=== PATIENT | male | born 1935 | race Caucasian/White ===

== ENCOUNTER 2017-01-16 09:59 | Observation (INO) | payer OTHER ==
[~2017-01-16] VITALS: Ht 175.3 cm; Wt 88.9 kg
[~2017-01-16 09:59] MED LIST: CELEBREX200 MG PO; FORTAMET500 M1 PO; LOVASTATIN10 MG PO; [UNRECOGNIZED DRUG - OTHER]
[2017-01-16 10:36] LABS: HEMATOCRIT 49.7 % (38.0-50.0); MCH 26.5 PG (29.0-34.0); MCV 82.8 FL (86-99); MEAN PLAT.VOLUME 11.3 uM^3 (9.0-12.4); PLATELET COUNT 303 K/uL (156-360); RBC DIS.WIDTH-SD 39.1 % (39-53); WHITE BLOOD COUNT 7.2 K/uL (4.1-10.2)
[2017-01-16 10:49] LABS: CHLORIDE 104 mEq/L (99-109); POTASSIUM 4.4 mEq/L (3.7-5.4); SODIUM 139 mEq/L (136-147)
[2017-01-16 10:51] LABS: GLUCOSE 117 mg/dL (70-99)
[2017-01-16 10:52] LABS: ANION GAP 11 MEQ/L (2-14)
[2017-01-16 10:55] LABS: GFR ESTIMATE (CALCULATED) > 59 mL/min/
[2017-01-16 10:56] LABS: UREA NITROGEN (BUN) 18 mg/dL (9-23)
[2017-01-16 10:57] LABS: TROP-I INTERPRETATION NEGATIVE; TROPONIN-I < 0.01 ng/mL (0.0-0.30)
[2017-01-16] MEDS ORDERED: MEVACOR40 MG PO (13:22)
[2017-01-16] MEDS ORDERED: ANTIVERT12.5 MG PO (13:23)
[2017-01-16] MEDS ORDERED: MAXZIDE 75/501 EACH PO (13:25)
[2017-01-16] MEDS ORDERED: LYRICA75 MG PO (13:27)
[2017-01-16 14:02] VITALS: BP 132/79
[2017-01-16 14:21] LABS: POINT-OF-CARE METER ID UU14162513
[2017-01-16 17:13] VITALS: BP 127/71
[2017-01-16 17:15] LABS: TROP-I INTERPRETATION NEGATIVE; TROPONIN-I < 0.01 ng/mL (0.0-0.30)
[2017-01-16 18:01] LABS: POINT-OF-CARE METER ID UU13113831
[2017-01-16 20:32] VITALS: BP 118/73
[2017-01-16 21:28] LABS: POINT-OF-CARE METER ID UU14162513
[2017-01-16 23:28] VITALS: BP 128/61
[2017-01-16 23:31] LABS: TROP-I INTERPRETATION NEGATIVE; TROPONIN-I < 0.01 ng/mL (0.0-0.30)
[2017-01-17 03:54] VITALS: BP 114/57
[2017-01-17 07:45] LABS: POINT-OF-CARE METER ID UU13113700
[2017-01-17 08:46] VITALS: BP 114/72
[2017-01-17] MEDS ORDERED: NITROSTAT0.4 MG SL (09:47)
[2017-01-17 11:19] VITALS: BP 119/56
[2017-01-17 11:31] VITALS: BP 121/73
== END 2017-01-17 12:04 | disposition home or self-care (01) ==
LOC: EME 09:59 → EDOF 12:42 → 5WEST 12:42
PROVIDERS: Hospitalist; Internal Medicine
DX: R07.89 Other chest pain (principal); E11.9 Type 2 diabetes mellitus without complications; I10 Essential (primary) hypertension
CPT/HCPCS: 71020; 80048; 82948; 84484; 85027; 93005; 99281; 99285; G0378; J1650; J1815; J1885

== ENCOUNTER 2017-02-23 09:53 | Day surgery (SDC) | payer OTHER ==
[~2017-02-23] VITALS: Ht 175.3 cm; Wt 95.5 kg
[~2017-02-23 09:53] MED LIST changes: +ACID REDUCER20 MG PO; +ANTIVERT12.5 MG PO; +LO-DOSE ASPIRIN81 M2 PO; +LYRICA75 MG PO; +MAXZIDE 75/501 EACH PO; +METOPROLOL SUCC25 MG PO; +MEVACOR40 MG PO; +NITROSTAT0.4 MG SL
[2017-02-23 11:05] LABS: POINT-OF-CARE METER ID UU13113696
[2017-02-23 16:16] VITALS: BP 135/67
[2017-02-23 16:18] VITALS: BP 135/67
[2017-02-23 19:58] VITALS: BP 123/61
[2017-02-24 00:20] VITALS: BP 109/59
[2017-02-24 05:13] VITALS: BP 90/55
[2017-02-24 06:03] LABS: BASOPHIL COUNT 0.1 K/uL (0-0.1); EOSINOPHIL (%) 3.6 % (0-5); EOSINOPHIL COUNT 0.3 K/uL (0-0.3); HEMATOCRIT 44.6 % (38.0-50.0); IMMATURE GRANULOCYTE (%) 0.7 % (0.0-0.7); IMMATURE GRANULOCYTE COUNT 0.1 K/uL; INSTRUMENT ABS NEUTROPHIL CT 5.6 K/uL; LYMPHOCYTE COUNT 1.3 K/uL (1.0-2.8); MCH 26.6 PG (29.0-34.0); MCHC 32.3 G/DL (30.0-36.0); MCV 82.3 FL (86-99); MEAN PLAT.VOLUME 10.9 uM^3 (9.0-12.4); MONOCYTE (%) 12.2 % (3-12); NEUTROPHIL (%) 67.8 % (45-76); NEUTROPHIL COUNT 5.6 K/uL (1.8-6.4); PLATELET COUNT 263 K/uL (156-360); RBC DIS.WIDTH-CV 13.3 % (11.8-14.6); RBC DIS.WIDTH-SD 39.7 % (39-53); RED BLOOD COUNT 5.42 M/uL (4.00-5.50)
[2017-02-24 06:26] LABS: WHITE BLOOD COUNT 8.3 K/uL (4.1-10.2)
[2017-02-24 06:27] LABS: ANION GAP 8 MEQ/L (2-14); CHLORIDE 104 MEQ/L (99-109); GFR ESTIMATE (CALCULATED) > 59 mL/min/; GLUCOSE 114 mg/dL (70-99); POTASSIUM 3.6 MEQ/L (3.7-5.4); SAMPLE HEMOLYSIS CHECK 0; SAMPLE ICTERIC CHECK 0; SAMPLE LIPEMIA CHECK 0; SODIUM 140 MEQ/L (136-147); UREA NITROGEN (BUN) 16 mg/dL (9-23)
[2017-02-24 08:03] VITALS: BP 117/71
[2017-02-24] MEDS ORDERED: ATORVASTATIN CA40 MG PO (11:03)
[2017-02-24] MEDS ORDERED: CLOPIDOGREL75 MG PO (11:03)
== END 2017-02-24 12:17 | disposition home or self-care (01) ==
LOC: CATH 09:53 → 2SOUTH 14:16 → 4EAST 14:16
PROVIDERS: Internal Medicine Cardiovascular Disease
DX: I25.10 Atherosclerotic heart disease of native coronary artery without angina pectoris (principal); I44.0 Atrioventricular block, first degree; E11.9 Type 2 diabetes mellitus without complications; E78.5 Hyperlipidemia, unspecified; I10 Essential (primary) hypertension; Z79.82 Long term (current) use of aspirin; Z79.84 Long term (current) use of oral hypoglycemic drugs; F17.211 Nicotine dependence, cigarettes, in remission
CPT/HCPCS: 93458; C9600; 80048; 82948; 85025; 85347; 93005; C1725; C1769; C1874; C1887; G0378; J0461; J1644; J1815; J2250; J3010; J3246